=== PATIENT | female | born 1945 | race Caucasian/White ===

== ENCOUNTER 2018-03-11 07:49 | Outpatient (CLI) | payer OTHER | END 2018-03-11 08:17 | disposition home or self-care (01) | LOC: LAB 07:49 | DX: E11.9 Type 2 diabetes mellitus without complications (principal); I10 Essential (primary) hypertension; E78.2 Mixed hyperlipidemia; E66.3 Overweight; Z12.11 Encounter for screening for malignant neoplasm of colon ==

== ENCOUNTER 2018-03-12 09:58 | Outpatient (CLI) | payer OTHER | END 2018-03-12 09:59 | disposition home or self-care (01) | LOC: LAB 09:58 | DX: Z12.11 Encounter for screening for malignant neoplasm of colon (principal); I10 Essential (primary) hypertension; E11.9 Type 2 diabetes mellitus without complications; E78.2 Mixed hyperlipidemia; E66.3 Overweight ==

== ENCOUNTER 2018-03-13 07:55 | Outpatient (CLI) | payer OTHER | END 2018-03-13 08:00 | disposition home or self-care (01) | LOC: MAMO-SONO 07:55 | DX: Z12.31 Encounter for screening mammogram for malignant neoplasm of breast (principal); Z87.898 Personal history of other specified conditions; C50.912 Malignant neoplasm of unspecified site of left female breast ==

== ENCOUNTER 2019-07-08 07:38 | Outpatient (CLI) | payer OTHER | END 2019-07-08 07:52 | disposition home or self-care (01) | LOC: LAB 07:38 | DX: E11.9 Type 2 diabetes mellitus without complications (principal); E78.00 Pure hypercholesterolemia, unspecified; I10 Essential (primary) hypertension ==